=== PATIENT | female | born 1975 | race African-American/Black ===

== ENCOUNTER → 2021-04-29 | Outpatient (CLI) | payer OTHER ==
[~2021-04-29] MED LIST: GADOTERATE 5 MMOL/10ML VIAL. INT ART ONE; IOHEXOL 300 MG/ML 50 ML VIAL. INT ART ONE; LIDOCAINE 1% Multi-Dose 20 ML VIAL. ID ONE; [UNRECOGNIZED DRUG - CODE] PO
--- NOTE | 2021-04-29 17:34 | KCIC ---
Study: Fluoroscopically guided arthrogram of the left hip joint for MRI Indication: Labral tear. Chronic pain. Contrast: 2 cc Omnipaque 300; 0.1 cc Clariscan Technique: A timeout was performed prior to beginning the procedure in order to confirm patient identity and lat erality of the injection. The risks, benefits and alternatives of the procedure were discussed. Utilizing sterile technique, fluoroscopic guidance and local anesthesia with 1% lidocaine, the left h ip joint was accessed utilizing a 22-gauge, 3.5" spinal needle. Confirmation of needle position was o btained with a small amount of radiopaque contrast. Subsequently, 12 cc of a mixture containing 5 cc lidocaine, 15 cc saline and 0.1 cc Clariscan was injected. There were no immediate post procedure com plications. Fluoroscopy time: 12 seconds Number of images obtained: 2 Impression: Technically successful fluoroscopic guided arthrogram of the left hip joint without immediate postpro cedure complication. Electronically signed by: CAYLA KAPADIA MD (04/29/2021 5:32 PM) [id number]
--- NOTE | 2021-04-29 20:50 | KCIC ---
Study: MRI arthrogram of the left hip INDICATION: Tear of the left acetabular labrum. Chronic hip pain. COMPARISON: None. TECHNIQUE: Multiplanar MR imaging of the left hip performed after the intra-articular injection of ga dolinium. The details of the procedure, to include the volume of contrast administered, are described in a separate report. FINDINGS: Bones: No fracture, avascular necrosis or stress reaction. Hip arthrosis is mild. Labrum/cartilage: Blunting of the labrum mainly from anterior/superior to posterior/superior. Partial thickness chondrosis most notably at the superolateral acetabular rim. Ligamentum teres: Intact. Greater trochanteric bursa: No fluid distention of the bursa to indicate bursitis. Musculotendinous: Mild insertional gluteus minimus tendinosis. Unremarkable gluteus medius. Intact re ctus femoris, iliopsoas and common hamstring origin. Normal ischiofemoral space. No localized muscula r edema or atrophy. Miscellaneous: No periarticular soft tissue edema. No mass effect on the sciatic nerve bundle. Thicke melba endometrium. There is likely a small amount of free fluid within the pelvis noting that assessmen t is limited by incomplete fat suppression. IMPRESSION: 1. Mild left hip arthrosis with partial thickness chondrosis best seen at the superolateral acetabul ar rim. The labrum is diminutive/blunted mainly from anterior/superior to posterior/superior which co uld be in part developmental but the heterogeneous morphology suggests a component of labral degenera tion/degenerative tearing. 2. Minimal insertional tendinosis of the gluteus minimus. Otherwise unremarkable tendons around the left hip. 3. Thickened endometrium and probable small volume fluid within the pelvis. These findings are favor ed physiologic given patient age. Correlate for any pertinent clinical findings such as abnormal vagi nal bleeding to determine the need for pelvic ultrasound follow-up. Electronically signed by: CAYLA KAPADIA MD (04/29/2021 8:48 PM) [facility]
== END | disposition home or self-care (01) ==
LOC: KCIC 15:03
PROVIDERS: ATTEND Orthopaedic Surgery
DX: S73.102A Unspecified sprain of left hip, initial encounter (principal); G89.29 Other chronic pain; M25.552 Pain in left hip; R93.89 Abnormal findings on diagnostic imaging of other specified body structures; N93.9 Abnormal uterine and vaginal bleeding, unspecified; Z79.899 Other long term (current) drug therapy; Z98.890 Other specified postprocedural states; Z88.8 Allergy status to other drugs, medicaments and biological substances; X58.XXXA Exposure to other specified factors, initial encounter; Y93.89 Activity, other specified; Y92.89 Other specified places as the place of occurrence of the external cause; Y99.8 Other external cause status
CPT/HCPCS: 27093; 73722; 77002; A9575; J3490; Q9967